=== PATIENT | male | born 1995 | race Hispanic/Latino ===

== ENCOUNTER 2021-09-26 22:11 | Emergency (ER) | payer SELFPAY ==
[~2021-09-26] VITALS: Ht 165.1 cm; Wt 77.1 kg
[2021-09-26] MEDS ORDERED: ONDANSETRON HCL 4 MG ORAL DISINTEGRATING TAB PO STA (22:27)
[2021-09-26] MEDS ORDERED: KETOROLAC TROMETHAMINE 60 MG/2 ML VIAL IM STA (22:27)
[2021-09-26] MEDS ORDERED: ONDANSETRON HCL 4 MG ORAL DISINTEGRATING TAB ONE (22:41)
[2021-09-26] MEDS ORDERED: KETOROLAC TROMETHAMINE 60 MG/2 ML VIAL ONE (22:41)
[2021-09-26 23:03] LABS: CLARITY,URINE SL CLOUDY (CLEAR); COLOR,URINE YELLOW (YELLOW); LEUKOCYTE ESTERASE ,URINE NEGATIVE (NEGATIVE); NITRITE,URINE NEGATIVE (NEGATIVE); PROTEIN,URINE DIPSTICK NEGATIVE (NEGATIVE)
[2021-09-26 23:04] LABS: KETONES,URINE NEGATIVE (NEGATIVE); URINE UROBILINOGEN 0.2 mg/dL (0.2 - 1)
[2021-09-26 23:08] LABS: BACTERIA,URINE FEW /HPF; EPITHELIAL CELLS,URINE FEW /LPF; RBC,URINE >50 /HPF (0-5)
[2021-09-26 23:20] VITALS: BP 138/80
[2021-09-26] MEDS ORDERED: FLOMAX0.4 MG PO (23:24)
[2021-09-26] MEDS ORDERED: MOTRIN200 MG PO (23:24)
== END 2021-09-26 23:30 | disposition home or self-care (01) ==
LOC: MERGE 22:27 → ER 22:27
DX: R10.32 Left lower quadrant pain (principal); N20.2 Calculus of kidney with calculus of ureter; R11.2 Nausea with vomiting, unspecified
CPT/HCPCS: 74176; 81001; 99283; J1885; Q0162

== ENCOUNTER 2022-05-24 22:11 | Emergency (ER) | payer SELFPAY ==
[~2022-05-24] VITALS: Ht 165.1 cm; Wt 77.1 kg
[~2022-05-24 22:11] MED LIST: FLOMAX0.4 MG PO; MOTRIN200 MG PO
[2022-05-24 22:40] LABS: BASOPHILS % 0.3 % (0.0-1.0); EOSINOPHILS # (AUTO) 0.1 (0.0-0.4); EOSINOPHILS % 0.9 % (0.0-6.0); HEMATOCRIT 48.4 % (38.2-49.6); HEMOGLOBIN 15.5 g/dL (14.0-18.0); LYMPHOCYTES # (AUTO) 4.3 (1.0-3.2); MEAN CORPUSCULAR HEMOGLOBIN 30.5 pg (28-32); MEAN CORPUSCULAR VOLUME 95.1 fL (81-99); MONOCYTES # (AUTO) 1.1 (0.2-0.8); MONOCYTES % 7.4 % (4.4-11.3); NEUTROPHILS # (AUTO) 9.6 (2.1-6.9); NEUTROPHILS % 63.1 % (38.7-80.0); PLATELET COUNT 303 x10e3/uL (140-360); RED BLOOD COUNT 5.09 x10e6/uL (4.3-5.7); RED CELL DISTRIBUTION WIDTH 12.5 % (11.7-14.4)
[2022-05-24 22:42] LABS: CLARITY,URINE CLEAR (CLEAR); COLOR,URINE YELLOW (YELLOW); KETONES,URINE NEGATIVE (NEGATIVE); LEUKOCYTE ESTERASE ,URINE NEGATIVE (NEGATIVE); NITRITE,URINE NEGATIVE (NEGATIVE); PROTEIN,URINE DIPSTICK NEGATIVE (NEGATIVE); URINE UROBILINOGEN 0.2 mg/dL (0.2 - 1)
[2022-05-24] MEDS ORDERED: IOPAMIDOL 370 MG/ML 100 ML INFUS..BTL INJ ONE (22:45)
[2022-05-24 22:46] LABS: WBC,URINE (MAN) 0-5 /HPF (0-5)
[2022-05-24 22:47] LABS: BACTERIA,URINE FEW /HPF; EPITHELIAL CELLS,URINE RARE /LPF
[2022-05-24 23:02] LABS: ALBUMIN 4.1 g/dL (3.5-5.0); ALBUMIN/GLOBULIN RATIO 1.2 (0.8-2.0); CALCIUM 9.5 mg/dL (8.4-10.2); CREATININE, SERUM 0.96 mg/dL (0.72-1.25)
[2022-05-24] MEDS ORDERED: ONDANSETRON HCL INJ 2MG/ML 2ML 2 MG/ML VIAL IV STA (23:49)
[2022-05-24] MEDS ORDERED: ONDANSETRON HCL INJ 2MG/ML 2ML 2 MG/ML VIAL ONE (23:50)
[2022-05-24] MEDS ORDERED: Morphine 4mg INJECTION 4 MG/ML INJ ONE (23:51)
[2022-05-24] MEDS ORDERED: PIPERACILLIN/TAZOBACTAM 3.375 GM VIAL ONE (23:52)
[2022-05-25] MEDS ORDERED: Morphine 4mg INJECTION 4 MG/ML INJ IV ONE
[2022-05-25] MEDS ORDERED: ONDANSETRON ODT4 MG PO (00:11)
[2022-05-25] MEDS ORDERED: ACETAMINOPHEN-1 EAC4 PO (00:11)
[2022-05-25] MEDS ORDERED: AUGMENTIN 500-1 EACH PO (00:11)
[2022-05-25] MEDS ORDERED: SODIUM CHLORIDE 0.9% 1000ML 2,000 ML ONE (00:34)
[2022-05-25 01:31] VITALS: BP 120/73
== END 2022-05-25 01:32 | disposition home or self-care (01) ==
LOC: ER 22:32
DX: R10.31 Right lower quadrant pain (principal); K52.9 Noninfective gastroenteritis and colitis, unspecified
CPT/HCPCS: 36415; 74177; 80053; 81001; 83690; 85025; 99284; J2270; J2405; J2543; J7030; Q9967